=== PATIENT | female | born 1995 | race Two or more races ===

== ENCOUNTER 2022-05-16 09:13 | Emergency (ER) | payer MEDICAID, SELFPAY ==
--- NOTE | ~2022-05-16 | US_ITS ---
EXAMINATION: US PELVIS CLINICAL INFORMATION: Pain COMPARISON: Pelvic ultrasound from 07/03/2012 TECHNIQUE: Ultrasound of the pelvis is performed using both transabdominal and transvaginal transducers along with Doppler. Transvaginal imaging is performed due to suboptimal visualization transabdominally. FINDINGS: UTERUS AND CERVIX The anteflexed, anteverted uterus measures 7.7 x 3.8 x 4.6 cm (ycqyvl-vr-vgihtl x AP x transverse dimension). The myometrial echotexture is normal. No evidence of leiomyoma. The cervix is approximately 2.5 cm in length. A contraceptive device is well centered within the endometrium. The endometrium has an estimated AP thickness of 0.2 cm. No endometrial fluid. ADNEXA: The right ovary measures approximately 2 x 3 x 2.4 cm and left ovary 2.4 x 1.5 x 1.7 cm. No adnexal mass. Color Doppler images with spectral waveforms show presence of normal arterial flow within each ovary. FREE FLUID: None detected. US/US pelvic ovarian doppler IMPRESSION: * Normal sonographic examination of the pelvis. No evidence of ovarian mass, torsion or pelvic free fluid. * Contraceptive device is well centered within the endometrial cavity.
--- NOTE | ~2022-05-16 | US_ITS ---
EXAMINATION: US PELVIS CLINICAL INFORMATION: Pain COMPARISON: Pelvic ultrasound from 07/03/2012 TECHNIQUE: Ultrasound of the pelvis is performed using both transabdominal and transvaginal transducers along with Doppler. Transvaginal imaging is performed due to suboptimal visualization transabdominally. FINDINGS: UTERUS AND CERVIX The anteflexed, anteverted uterus measures 7.7 x 3.8 x 4.6 cm (rwryqp-vz-zmwwco x AP x transverse dimension). The myometrial echotexture is normal. No evidence of leiomyoma. The cervix is approximately 2.5 cm in length. A contraceptive device is well centered within the endometrium. The endometrium has an estimated AP thickness of 0.2 cm. No endometrial fluid. ADNEXA: The right ovary measures approximately 2 x 3 x 2.4 cm and left ovary 2.4 x 1.5 x 1.7 cm. No adnexal mass. Color Doppler images with spectral waveforms show presence of normal arterial flow within each ovary. FREE FLUID: None detected. US/US pelvic and transvaginal IMPRESSION: * Normal sonographic examination of the pelvis. No evidence of ovarian mass, torsion or pelvic free fluid. * Contraceptive device is well centered within the endometrial cavity.
[2022-05-16 09:28] VITALS: BP 121/72; PULSE 75; RESP 18; TEMP 36.6; O2SAT 100; BMI 31.1
[2022-05-16 09:51] LABS: Appearance Urine Hazy; Color Urine Yellow; Glucose Urine UA Negative (Negative); Leukocyte Esterase Urine Negative (Negative); Nitrite Urine Negative (Negative); Specific Gravity - Urine >= 1.030 (1.005-1.025); UMIC TRIGGER UACC YES; Urine Blood Trace (Negative); Urine Ketones Negative (Negative); Urine Protein Negative (Neg-Trace)
[2022-05-16 09:52] LABS: UPreg QC Valid YES; Urine Pregnancy NEGATIVE (NEGATIVE)
[2022-05-16 09:57] LABS: Bacteria Urine 1+ (None Seen); Hyaline Casts Urine 0-2 /LPF (0-2); RBC Urine 0-2 /HPF (0-2); WBC Urine 0-5 /HPF (0-5)
--- NOTE | 2022-05-16 09:57 | ED.FEMALEGU ---
HPI - Female Genitourinary General Chief complaint: Urogenital-Female Stated complaint: vaginal pain Time Seen by Provider: 05/16/22 09:36 Source: patient Mode of arrival: ambulatory Limitations: no limitations History of Present Illness HPI Narrative: 27 year old female with no significant past medical history presents to the emergency department with complaints of sharp pelvic/lower abdominal pain beginning yesterday. She states pain began with a cramping sensation and proceeded to become more sharp. She endorses intermittent chills without fever and nausea. She reports she has a Mirena IUD for the past 9 years but does not check for IUD strings regularly. She denies vaginal discharge, vaginal bleeding, dysuria, foul urine, urinary hesitancy. She MD elicited complaint: pelvic pain Related Data Previous Rx's Medication Instructions Recorded doxycycline hyclate 100 mg tablet 100 mg PO BID 14 days #28 tabs 05/16/22 metronidazole 500 mg tablet 500 mg PO BID 14 days #28 tabs 05/16/22 Allergies Allergy/AdvReac Type Severity Reaction Status Date / Time No Known Allergies Allergy Unverified 01/20/20 17:03 [facility] Social History Social History Advance Directives: No Patient : No Physical Exam Vital Signs: Vital Signs: Last Vital Signs Temp 97.9 F 05/16/22 09:28 Pulse 75 05/16/22 09:28 Resp 18 05/16/22 09:28 BP 121/72 05/16/22 09:28 Pulse Ox 100 05/16/22 09:28 O2 Del Method 05/16/22 09:28 BMI result Body Mass Index 31.1 Course Course Course Narrative: 1100: Normal pelvic ultrasound. Plan for pelvic exam with swabs for bacterial vaginosis and trichomoniasis Medications Administered Discontinued Medications Generic Name Dose Route Start Last Admin Trade Name Freq PRN Reason Stop Dose Admin Ondansetron HCl 4 mg 05/16/22 10:02 05/16/22 10:50 Ondansetron Odt 4 Mg Tab.Dajadis TRANSLINGU 05/16/22 10:03 4 mg ONCE ONE Administration Medical Decision Making Medical Decision Making [facility] Narrative: 27 year old female with no significant past medical history presents to the emergency department with complaints of sharp pelvic/lower abdominal pain beginning yesterday. She states pain began with a cramping sensation and proceeded to become more sharp. She endorses intermittent chills without fever and nausea. She reports she has a Mirena IUD for the past 9 years but does not check for IUD strings regularly. Ultrasound of pelvis showing normal sonographic exam, normal arterial flow to each ovary, contraceptive device is well centered within the endometrial cavity, no evidence of ovarian mass, torsion, or pelvic free fluid. UA negative for signs of infection or . Blood work was unremarkable. Bimanual exam with uterine and adnexa tenderness. Pelvic exam was consistent with discomfort with speculum insertion with sarabia/white vaginal drainage. Swabs for BV and trich sent. Urine sent prior to pelvic exam for GC. History, physical, and diagnostic exams consistent with pelvic inflammatory disease. Patient treated with IM ceftriaxone and doxycycline started here in the emergency department. Plan for patient to continue 14 day course of both doxycycline and metronidazole. Patient is safe for discharge at this time with plan to manage discomfort with [id number] Tylenol and/or Motrin and prescribed antibiotics. HPI, PE, diagnostics, and plan discussed with patient with no unanswered questions at this time. Educated patient that we will contact her with results vaginal swabs. Patient educated to return to the emergency department with fevers 101.4 or greater, worsening or uncontrolled pain, rashes, sores, vomiting, or concerning emergent symptoms. Recommended to follow-up with her primary care provider in addition to antitank assault gunner for further treatment and management. *Refer to Course for additional information on consultations, diagnostic interpretation, consultations, emergency department stay, conversations with patient and family, shared decision making with patient, and more information on medical decision making* Lab Data 05/16/22 10:49 05/16/22 10:49 Labs: Lab Results 05/16/22 05/16/22 05/16/22 Range/Units 09:37 09:37 10:49 WBC 6.2 (4.8-10.8) X10*3/uL RBC 6.13 H (4.20-5.50) X10*6/uL Hgb 13.6 (12.0-16.0) g/dl Hct 44.6 (37.0-47.0) % MCV 72.8 L (80.0-98.0) fL MCH 22.2 L (27.0-33.0) pg MCHC 30.5 L (31.0-35.0) g/dl RDW 15.5 (11.0-16.0) % Plt Count 324 (160-400) X10*3/uL MPV 10.3 (9.4-12.3) fL Immature Gran % (Auto) 0.2 (0.0-0.4) % Neut % (Auto) 50.4 (45-73) % Lymph % (Auto) 39.1 (20-40) % [place]more % (Auto) 5.3 (2-11) % Eos % (Auto) 4.2 H (0-4) % Baso % (Auto) 0.8 (0-2) % Lymph # (Auto) 2.4 (1.2-4.9) X10*3/uL [place] # (Auto) 0.3 (0.1-1.2) X10*3/uL Eos # (Auto) 0.3 (0.0-0.4) X10*3/uL Baso # (Auto) 0.1 (0.0-0.2) X10*3/uL Abs Immat Gran (auto) 0.01 (0.00-0.03) X10*3/uL Absolute Neuts (auto) 3.1 (2.0-8.3) x10*3/uL Absolute Nucleated RBC 0.000 (0.0-0.012) X10*3/uL Nucleated RBC % (auto) 0.0 (0.0-0.2) /100WBC Sodium (135-145) mmol/L Potassium (3.3-5.1) mmol/L Chloride (96-108) mmol/L Carbon Dioxide (22-29) mmol/L Anion Gap (12-20) BUN (9-16) mg/dL Creatinine (0.5-1.4) mg/dL Estim Creat Clear Calc Estimated GFR Random Glucose (60-115) mg/dL Calcium (8.4-10.2) mg/dL Magnesium (1.6-2.6) mg/dL Total Bilirubin (0.0-1.0) mg/dL AST (5-31) U/L ALT (0-31) U/L Alkaline Phosphatase (39-117) U/L Total Protein (6.5-8.0) g/dL Albumin (3.5-5.0) g/dL Urine Color Yellow Urine Appearance Hazy Urine pH 6.0 (5.0-9.0) Ur Specific [place] >= 1.030 H (1.005-1.025) Urine Protein Negative (Neg-Trace) mg/dL Urine Glucose (UA) Negative (Negative) mg/dL Urine Ketones Negative (Negative) mg/dL Urine Blood Trace (Negative) Urine Nitrite Negative (Negative) Ur Leukocyte Esterase Negative (Negative) Urine RBC 0-2 (0-2) /HPF Urine WBC 0-5 (0-5) /HPF Ur Squamous Epith Cells 11-20 (0-2) /HPF Urine Bacteria 1+ (None Seen) Hyaline Casts 0-2 (0-2) /LPF Urine Test NEGATIVE (NEGATIVE) 05/16/22 Range/Units 10:49 WBC (4.8-10.8) X10*3/uL RBC (4.20-5.50) X10*6/uL Hgb (12.0-16.0) g/dl Hct (37.0-47.0) % MCV (80.0-98.0) fL MCH (27.0-33.0) pg MCHC (31.0-35.0) g/dl RDW (11.0-16.0) % Plt Count (160-400) X10*3/uL MPV (9.4-12.3) fL Immature Gran % (Auto) (0.0-0.4) % Neut % (Auto) (45-73) % Lymph % (Auto) (20-40) % [place] % (Auto) (2-11) % Eos % (Auto) (0-4) % Baso % (Auto) (0-2) % Lymph # (Auto) (1.2-4.9) X10*3/uL [place] # (Auto) (0.1-1.2) X10*3/uL Eos # (Auto) (0.0-0.4) X10*3/uL Baso # (Auto) (0.0-0.2) X10*3/uL Abs Immat Gran (auto) (0.00-0.03) X10*3/uL Absolute Neuts (auto) (2.0-8.3) x10*3/uL Absolute Nucleated RBC (0.0-0.012) X10*3/uL Nucleated RBC % (auto) (0.0-0.2) /100WBC Sodium 137 (135-145) mmol/L Potassium 4.2 (3.3-5.1) mmol/L Chloride 107 (96-108) mmol/L Carbon Dioxide 25 (22-29) mmol/L Anion Gap 9 L (12-20) BUN 16 (9-16) mg/dL Creatinine 0.73 (0.5-1.4) mg/dL Estim Creat Clear Calc 112.2 Estimated GFR > 60 Random Glucose 89 (60-115) mg/dL Calcium 9.8 (8.4-10.2) mg/dL Magnesium 2.0 (1.6-2.6) mg/dL Total Bilirubin 0.4 (0.0-1.0) mg/dL AST 17 (5-31) U/L ALT 21 (0-31) U/L Alkaline Phosphatase 53 (39-117) U/L Total Protein 7.6 (6.5-8.0) g/dL Albumin 4.6 (3.5-5.0) g/dL Urine Color Urine Appearance Urine pH (5.0-9.0) Ur Specific [place] (1.005-1.025) Urine Protein (Neg-Trace) mg/dL Urine Glucose (UA) (Negative) mg/dL Urine Ketones (Negative) mg/dL Urine Blood (Negative) Urine Nitrite (Negative) Ur Leukocyte Esterase (Negative) Urine RBC (0-2) /HPF Urine WBC (0-5) /HPF Ur Squamous Epith Cells (0-2) /HPF Urine Bacteria (None Seen) Hyaline Casts (0-2) /LPF Urine Test (NEGATIVE) Radiology Impression Discussion of test interpretation with radiology: I have reviewed the radiologist's reading. Radiologist Impression: EXAMINATION:? US PELVIS CLINICAL INFORMATION:? Pain COMPARISON: Pelvic ultrasound from 07/03/2012 TECHNIQUE: Ultrasound of the pelvis is performed using both transabdominal and transvaginal transducers along with Doppler. Transvaginal imaging is performed due to suboptimal visualization transabdominally. FINDINGS: UTERUS AND CERVIX The anteflexed, anteverted uterus measures 7.7 x 3.8 x 4.6 cm (ojjzpy-ij-vhdfzu x AP x transverse dimension). The myometrial echotexture is normal. No evidence of leiomyoma. The cervix is approximately 2.5 cm in length. A contraceptive device is well centered within the endometrium. The endometrium has an estimated AP thickness of 0.2 cm. No endometrial fluid. ADNEXA: The right ovary measures approximately 2 x 3 x 2.4 cm and left ovary 2.4 x 1.5 x 1.7 cm. No adnexal mass. Color Doppler images with spectral waveforms show presence of normal arterial flow within each ovary. FREE FLUID: None detected. US/US pelvic and transvaginal IMPRESSION: *? Normal sonographic examination of the pelvis. No evidence of ovarian mass, torsion or pelvic free fluid. *? Contraceptive device is well centered within the endometrial cavity. Dictated By: Alexis Landrum MD Signed By: <Electronically signed by Alexis Landrum MD in OV> 05/16/22 1051 DD/ 1019 TD/TT:? [employer] Supervisor: PD Discharge Plan Discharge Clinical Impression: Acute PID (pelvic inflammatory disease) Patient Disposition: Home, Self-Care Instructions: Bacterial Vaginosis (ED), Safe Sex Practices (ED), Trichomoniasis (ED) Additional Instructions: You have been evaluated in the Emergency Department today for your pelvic pain. Your ultrasound was negative showing normal sonographic exam, normal arterial flow to each ovary, contraceptive device is well centered within the endometrial cavity, no evidence of ovarian mass, torsion, or pelvic free fluid. UA negative for signs of infection. Your blood work was unremarkable. Your pelvic exam was consistent with discomfort with speculum insertion, and lower abdominal palpation consistent with pelvic inflammatory disease. You were tested today for bacterial vaginosis, Trichomonas, gonorrhea, and chlamydia and the results are still pending; you have been given treatment for these infections presumptively anyway. You will receive a phone call in~3 days if the results are positive. You should follow up with your primary care provider for further STI testing. 2 antibiotics were prescribed for treatment of presumed pelvic inflammatory disease. Please take your prescribed antibiotics for the full course of the medication as directed. Please follow up with your primary care physician and antitank assault gunner within two days. Return to the Emergency Department if you experience fevers 100.4? or greater, worsening or uncontrolled pain, rashes, sores, vomiting, or for any other concerning symptoms. Prescriptions: New doxycycline hyclate 100 mg tablet 100 mg PO BID 14 Days Qty: 28 0RF metronidazole 500 mg tablet 500 mg PO BID 14 Days Qty: 28 0RF Referrals: [facility] [[place] Group] [facility] [place] [facility], [place] [Provider Group] [facility] [place] [facility] [Provider Group] [facility] [place] [facility] [Provider Group]
[2022-05-16] MEDS: Ondansetron ODT 4 MG TAB.RAPDIS TRANSLINGU (10:50)
[2022-05-16 10:53] LABS: MANUAL DIFF FLAG NO
[2022-05-16 11:00] LABS: Basophils Absolute Auto 0.1 X10*3/uL (0.0-0.2); Basophils Percent Auto 0.8 % (0-2); Eosinophils Absolute Auto 0.3 X10*3/uL (0.0-0.4); Eosinophils Percent Auto 4.2 % (0-4); Hematocrit 44.6 % (37.0-47.0); Hemoglobin 13.6 g/dl (12.0-16.0); Imm Gran Abs Auto 0.01 X10*3/uL (0.00-0.03); Imm Gran Pct Auto 0.2 % (0.0-0.4); Lymphocytes Absolute Auto 2.4 X10*3/uL (1.2-4.9); Lymphocytes Percent Auto 39.1 % (20-40); Mean Corpuscular HGB Conc 30.5 g/dl (31.0-35.0); Mean Corpuscular Hemoglobin 22.2 pg (27.0-33.0); Mean Corpuscular Volume 72.8 fL (80.0-98.0); Mean Platelet Volume 10.3 fL (9.4-12.3); Monocytes Absolute Auto 0.3 X10*3/uL (0.1-1.2); Monocytes Percent Auto 5.3 % (2-11); Neutrophils Absolute Auto 3.1 x10*3/uL (2.0-8.3); Neutrophils Percent Auto 50.4 % (45-73); Platelet Count 324 X10*3/uL (160-400); Red Blood Count 6.13 X10*6/uL (4.20-5.50); Red Cell Distribution Width 15.5 % (11.0-16.0); White Blood Count 6.2 X10*3/uL (4.8-10.8)
[2022-05-16 11:12] LABS: Alanine Aminotransferase 21 U/L (0-31); Albumin Level 4.6 g/dL (3.5-5.0); Alkaline Phosphatase 53 U/L (39-117); Anion Gap 9 (12-20); Aspartate Amino Transferase 17 U/L (5-31); Bilirubin Total 0.4 mg/dL (0.0-1.0); Blood Urea Nitrogen 16 mg/dL (9-16); Calcium 9.8 mg/dL (8.4-10.2); Carbon Dioxide 25 mmol/L (22-29); Chloride 107 mmol/L (96-108); Creatinine Clr Calc Pharmacy 112.2; Estimated Glomerular Filt Rate > 60; Glucose Random 89 mg/dL (60-115); Potassium 4.2 mmol/L (3.3-5.1); Sodium 137 mmol/L (135-145); Total Protein 7.6 g/dL (6.5-8.0)
[2022-05-16] MEDS: cefTRIAXone sodium 500 MG VIAL IM (11:58)
[2022-05-16] MEDS: Doxycycline Monohydrate 100 MG CAPSULE PO (11:58)
[2022-05-16] MEDS: Ketorolac Tromethamine 15 MG/ML VIAL IM (12:16)
[2022-05-16 15:29] LABS: CT PCR NOT DETECTED (Not Detect.); NG PCR NOT DETECTED (Not Detect.)
== END 2022-05-16 12:29 | disposition home or self-care (01) ==
PROVIDERS: Nurse Practitioner Family; Emergency Provider Student in an Organized Health Care Education/Training Program
DX: N73.9 Female pelvic inflammatory disease, unspecified (principal); R10.2 Pelvic and perineal pain
CPT/HCPCS: 0353U; 36415; 76830; 76856; 80053; 81001; 81025; 83735; 85025; 87480; 87510; 87660; 93975; 96372; 99284; J0696; J1885

== ENCOUNTER 2022-09-03 10:54 | Emergency (ER) | payer MEDICAID, SELFPAY ==
[2022-09-03 11:08] VITALS: BP 136/78; PULSE 77; RESP 18; TEMP 36; O2SAT 100; BMI 31.1
--- NOTE | 2022-09-03 11:08 | ED_ITS ---
HPI - Abdominal Pain General Chief Complaint: Abdominal Pain Stated Complaint: Abd pain/Constipation Time Seen by Provider: 09/03/22 15:44 Source: patient Mode of arrival: ambulatory Limitations: no limitations History of Present Illness HPI narrative: 27 yo female presents to the ER for evaluation of constipation for the last 3 days along with a painful and itchy rash inside of her belly button that started yesterday. Patient reports at baseline she usually goes 2 days without having a bowel movement but today is day 3 and she has some associated generalized abdominal discomfort. She denies any nausea, vomiting, bloating. No fevers. No urinary symptoms. She has not tried any jlxf-xnm-zflnhtl laxatives. She states the rash inside of her belly button is itchy, and started bleeding yesterday when she was itching it. No drainage. MD elicited complaint: abdominal pain and other ( Constipation and belly button rash) Pertinent past history: constipation Onset (ago): day(s) (3) Pain Consistency: intermittent Location: diffuse Severity: moderate Quality: cramping Radiation: none Migration to: no migration Exacerbating factors: nothing Context: history of similar episodes Associated symptoms: constipation Related Data Previous Rx's Medication Instructions Recorded doxycycline hyclate 100 mg tablet 100 mg PO BID 14 days #28 tabs 05/16/22 metronidazole 500 mg tablet 500 mg PO BID 14 days #28 tabs 05/16/22 clotrimazole 1 % topical cream 1 appl topical TID #30 grams 09/03/22 (Lotrimin AF (clotrimazole)) docusate sodium 100 mg capsule 100 mg PO BID #14 caps 09/03/22 (Colace) polyethylene glycol 3350 17 17 g PO DAILY #119 grams 09/03/22 gram/dose oral powder (Miralax) Allergies Allergy/AdvReac Type Severity Reaction Status Date / Time No Known Allergies Allergy Verified 09/03/22 11:08 Review of Systems Review of Systems Yes all other systems are reviewed and are negative [facility] Social History Social History Advance Directives: No Advance Directives Information Provided: No Physical Exam ED Vital Signs: Vital Signs - 24 hr 09/03/22 11:08 09/03/22 15:41 Temperature 96.8 F 96.8 F Pulse Rate 77 62 Respiratory Rate 18 18 Blood Pressure 136/78 132/85 Pulse Oximetry 100 100 Oxygen Delivery Method Room Air Room Air BMI result Body Mass Index 31.1 Appearance: Alert. Oriented X3. No acute distress. Head: normocephalic, atraumatic. ENT: Pharynx normal. No tonsillar swelling or exudate. Neck: Normal inspection. Neck supple. CVS: Normal heart rate and rhythm. Pulses normal. Respiratory: No respiratory distress. Breath sounds normal. Abdomen: Soft and nontender. no rebound or guarding. Umbilicus with a dry, flaky, erythematous, well-demarcated rash consistent with a tinea rash. Normal active+BS x4 Skin: Skin warm and dry. Normal skin color. Normal skin turgor. No rashes. Extremities: No lower extremity edema. No joint swelling. Neuro/psych: Oriented X 3. grossly normal, nonfocal. CN II-XII intact. Normal speech and cognition. Course Course Course Narrative: RME - 27 yo female presents to the ER for evaluation of 3 days of constipation and a red, itchy rash in her belly button that started yesterday. She reports the abd pain is 8/10. No nausea, vomiting or diarrhea. Has not tried any OTC laxatives. Plan: basic labs Reevaluation(s) Reevaluation #1: labs are unremarkable. Abdominal exam is benign. She is stable for discharge home. Medical Decision Making Medical Decision Making [facility] Narrative: 27-year-old female presents to the ER for evaluation of 3 days of constipation along with a itchy, red rash inside of her umbilicus for the last 1 day. Her abdominal exam is benign, soft, normal bowel sounds without any guarding. No evidence of obstruction, no vomiting. Her rash is consistent with a tinea rash, will treat with antifungal. Will start kars-dap-lufurci laxatives, have her increase her oral hydration and fiber intake. No need for imaging of the abdomen today. She is stable for discharge home. Differential Diagnosis Differential Diagnoses: The differential diagnosis associated with the presentat ion includes constipation, IBS, dehydration, no evidence of SBO, colitis or appendicitis Lab Data [facility] Lab Attestation statement: I reviewed the patient's lab results. Unremarkable 09/03/22 13:40 09/03/22 13:40 Labs: Lab Results 09/03/22 09/03/22 Range/Units 13:40 13:40 WBC 8.5 (4.8-10.8) X10*3/uL RBC 5.55 H (4.20-5.50) X10*6/uL Hgb 12.6 (12.0-16.0) g/dl Hct 40.7 (37.0-47.0) % MCV 73.3 L (80.0-98.0) fL MCH 22.7 L (27.0-33.0) pg MCHC 31.0 (31.0-35.0) g/dl RDW 15.5 (11.0-16.0) % Plt Count 325 (160-400) X10*3/uL MPV 10.2 (9.4-12.3) fL Immature Gran % (Auto) 0.2 (0.0-0.4) % Neut % (Auto) 56.4 (45-73) % Lymph % (Auto) 32.7 (20-40) % [place] % (Auto) 5.4 (2-11) % Eos % (Auto) 4.2 H (0-4) % Baso % (Auto) 1.1 (0-2) % Lymph # (Auto) 2.8 (1.2-4.9) X10*3/uL [place] # (Auto) 0.5 (0.1-1.2) X10*3/uL Eos # (Auto) 0.4 (0.0-0.4) X10*3/uL Baso # (Auto) 0.1 (0.0-0.2) X10*3/uL Abs Immat Gran (auto) 0.02 (0.00-0.03) X10*3/uL Absolute Neuts (auto) 4.8 (2.0-8.3) x10*3/uL Absolute Nucleated RBC 0.000 (0.0-0.012) X10*3/uL Nucleated RBC % (auto) 0.0 (0.0-0.2) /100WBC Sodium 140 (135-145) mmol/L Potassium 4.4 (3.3-5.1) mmol/L Chloride 107 (96-108) mmol/L Carbon Dioxide 28 (22-29) mmol/L Anion Gap 9 L (12-20) BUN 16 (9-16) mg/dL Creatinine 0.65 (0.5-1.4) mg/dL Estim Creat Clear Calc 126.1 Estimated GFR > 60 Random Glucose 88 (60-115) mg/dL Calcium 9.8 (8.4-10.2) mg/dL Magnesium 1.9 (1.6-2.6) mg/dL Total Bilirubin 0.6 (0.0-1.0) mg/dL Direct Bilirubin 0.2 (0.0-0.5) mg/dL AST 15 (5-31) U/L ALT 19 (0-31) U/L Alkaline Phosphatase 49 (39-117) U/L Total Protein 7.1 (6.5-8.0) g/dL Albumin 4.4 (3.5-5.0) g/dL External Record Review External record reviewed: Office record, Outpatient record, Prior outpatient labs and Prior outpatient radiology Tests considered The following testing was considered but not selected: considered CT scan of the abdomen however this was deferred given her examination and clinical presentation Prescription Management I considered prescription management with: Other ( laxatives and topical antifungal agent) Critical Care Time Critical Care Time Critical Care Time: No Discharge Plan Discharge Clinical Impression: Constipation, Fungal rash of torso Patient Disposition: Home, Self-Care Instructions: Constipation (DC), Skin Yeast Infection (ED) Additional Instructions: Your lab workup today was unremarkable. Your rash is consistent with a mild fungal infection. Use the prescribed antifungal cream 3 times a day until it is completely resolved. Take the prescribed laxatives and stool softener as directed as needed for constipation. Drink plenty of water and increase fiber in your diet. If you develop new or worsening symptoms call 911 or come back to the ER for further evaluation. Prescriptions: New polyethylene glycol 3350 [Miralax] 17 gram/dose powder 17 g PO DAILY Qty: 119 0RF docusate sodium [Colace] 100 mg capsule 100 mg PO BID Qty: 14 0RF clotrimazole [Lotrimin AF (clotrimazole)] 1 % cream 1 appl topical TID Qty: 30 0RF No Action doxycycline hyclate 100 mg tablet 100 mg PO BID 14 Days Qty: 28 0RF metronidazole 500 mg tablet 500 mg PO BID 14 Days Qty: 28 0RF Stand Alone Forms: Work/School Release Interventions: ED Discharge Assessment Last Done: 09/03/22 15:47 Discharge Date/Time: 09/03/22 15:47
[2022-09-03 13:58] LABS: MANUAL DIFF FLAG NO
[2022-09-03 14:00] LABS: Basophils Absolute Auto 0.1 X10*3/uL (0.0-0.2); Basophils Percent Auto 1.1 % (0-2); Eosinophils Absolute Auto 0.4 X10*3/uL (0.0-0.4); Eosinophils Percent Auto 4.2 % (0-4); Hematocrit 40.7 % (37.0-47.0); Hemoglobin 12.6 g/dl (12.0-16.0); Imm Gran Abs Auto 0.02 X10*3/uL (0.00-0.03); Imm Gran Pct Auto 0.2 % (0.0-0.4); Lymphocytes Absolute Auto 2.8 X10*3/uL (1.2-4.9); Lymphocytes Percent Auto 32.7 % (20-40); Mean Corpuscular Hemoglobin 22.7 pg (27.0-33.0); Mean Corpuscular Volume 73.3 fL (80.0-98.0); Mean Platelet Volume 10.2 fL (9.4-12.3); Monocytes Absolute Auto 0.5 X10*3/uL (0.1-1.2); Monocytes Percent Auto 5.4 % (2-11); Neutrophils Absolute Auto 4.8 x10*3/uL (2.0-8.3); Neutrophils Percent Auto 56.4 % (45-73); Platelet Count 325 X10*3/uL (160-400); Red Blood Count 5.55 X10*6/uL (4.20-5.50); Red Cell Distribution Width 15.5 % (11.0-16.0); White Blood Count 8.5 X10*3/uL (4.8-10.8)
[2022-09-03 14:18] LABS: Alanine Aminotransferase 19 U/L (0-31); Albumin Level 4.4 g/dL (3.5-5.0); Alkaline Phosphatase 49 U/L (39-117); Anion Gap 9 (12-20); Aspartate Amino Transferase 15 U/L (5-31); Bilirubin Direct 0.2 mg/dL (0.0-0.5); Bilirubin Total 0.6 mg/dL (0.0-1.0); Blood Urea Nitrogen 16 mg/dL (9-16); Calcium 9.8 mg/dL (8.4-10.2); Carbon Dioxide 28 mmol/L (22-29); Chloride 107 mmol/L (96-108); Creatinine Clr Calc Pharmacy 126.1; Estimated Glomerular Filt Rate > 60; Glucose Random 88 mg/dL (60-115); Magnesium 1.9 mg/dL (1.6-2.6); Potassium 4.4 mmol/L (3.3-5.1); Sodium 140 mmol/L (135-145); Total Protein 7.1 g/dL (6.5-8.0)
[2022-09-03 15:41] VITALS: BP 132/85; PULSE 62; RESP 18; TEMP 36; O2SAT 100
== END 2022-09-03 15:47 | disposition home or self-care (01) ==
PROVIDERS: Physician Assistant; Emergency Provider Emergency Medicine
DX: K59.00 Constipation, unspecified (principal); R21 Rash and other nonspecific skin eruption; Z79.899 Other long term (current) drug therapy
CPT/HCPCS: 36415; 80048; 80076; 83735; 85025; 99282; 99283